=== PATIENT | female | born 1995 | race American Indian/Alaskan Native ===

== ENCOUNTER 2018-09-04 16:52 | Emergency (ER) | payer OTHER, MEDICAID ==
[2018-09-04 17:27] VITALS: BP 122/60
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
--- NOTE | 2018-09-04 20:33 | XRay Report ---
PROCEDURE: XR SPINE CERVICAL 2-3V TECHNIQUE: Cevical spine, AP, lateral and odontoid views. HISTORY: pain COMPARISONS: None . FINDINGS: Prevertebral soft tissues: Normal . Alignment: Normal . Vertebral body heights/Disk spaces: Normal . Fracture(s): None . Facets: Normal . Bone mineralization: Normal . IMPRESSION: Normal Examination . This document is electronically signed by Wendy Damon DO., September 04 2018 08:30:34 PM ET
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
== END 2018-09-04 21:18 | disposition home or self-care (01) ==
LOC: ED 16:52
DX: S16.1XXA Strain of muscle, fascia and tendon at neck level, initial encounter (principal); J45.909 Unspecified asthma, uncomplicated; V49.49XA Driver injured in collision with other motor vehicles in traffic accident, initial encounter; Y93.89 Activity, other specified; Y92.410 Unspecified street and highway as the place of occurrence of the external cause; Y99.8 Other external cause status
CPT/HCPCS: 72040